=== PATIENT | female | born 1975 ===

== ENCOUNTER 2017-12-29 12:00 | Inpatient (IN) | payer SELFPAY ==
[2017-12-23 12:20] VITALS: BMI 31.1
[2017-12-29] MEDS ORDERED: cefOXitin IV 2 gm in Dextrose 0 GM/0 ML BAG IVPB ONE (13:54)
[2017-12-29] MEDS ORDERED: Vasopressin 20 Units/ml Inj ONE (13:55)
[2017-12-29] MEDS ORDERED: Midazolam 2 MG/2 ML VIAL ONE (14:00)
[2017-12-29] MEDS ORDERED: Propofol 10 mg/ml Inj (20 ML) ONE (14:00)
[2017-12-29] MEDS ORDERED: Gentamicin 80 mg in 0.9% NS 80 MG/100 ML BAG IVPB ONE (14:09)
[2017-12-29] MEDS ORDERED: Clindamycin 600mg/50ml NS 600 MG/50 ML BAG IVPB ONE (14:09)
[2017-12-29] MEDS ORDERED: ePHEDrine 50 mg/ml Inj ONE (15:12)
[2017-12-29] MEDS ORDERED: Collagen Hemostat Powder ONE (15:27)
[2017-12-29] MEDS ORDERED: Dexamethasone 4 mg/1 ml IVP PRN (16:07)
[2017-12-29] MEDS ORDERED: HYDROmorphone 0.5 mg/0.5 ml ISec IVP PRN (16:07)
[2017-12-29] MEDS ORDERED: Bacitracin Ointment 30 GM TUBE ONE (16:12)
--- NOTE | 2017-12-29 16:22 | PCM.SURG1 ---
Surgeon's Initial Post Op Note - Surgeon's Notes Surgeon: Dr. Bueno Family [employer] Social Work Professor: Dr. Lemus Type of Anesthesia: General Endo Anesthesia Administered By: Dr. Holland Pre-Operative Diagnosis: 42 yo with Menorrhagia, Chronic pelvic pain , fibroid uterus Operative Findings: AV uterus with large fibroid approx 9 cm Post-Operative Diagnosis: same as above Operation Performed: Exp. Laparotomy, Lysis of adhesions, Myomectomy Specimen/Specimens Removed: Fibroid Estimated Blood Loss: EBL {In ML}: 100 Blood Products Given: N/A Drains Used: No Drains Post-Op Condition: Good Date of Surgery/Procedure: 12/29/17 Time of Surgery/Procedure: 16:
[2017-12-29] MEDS: HYDROmorphone 0.5 mg/0.5 ml ISec IVP PRN ×6 (16:49→22:24)
[2017-12-29 17:08] LABS: HEMOGLOBIN 9.8 g/dL (11.0-16.0); MEAN CELL VOLUME 69.3 fL (81.0-99.0); MEAN CORPUSCULAR HEMOGLOBIN 21.8 pg (27.0-31.0); MEAN CORPUSCULAR HGB CONC 31.5 g/dL (33.0-37.0); MEAN PLATELET VOLUME 7.7 fL (7.2-11.7); RBC 4.48 Mil/uL (3.80-5.20); RED CELL DISTRIBUTION WIDTH 16.7 % (11.5-14.5); WHITE BLOOD COUNT 17.9 K/uL (4.8-10.8)
[2017-12-29] MEDS ORDERED: Lactated Ringer's 1,000 ML IV ONE (18:30)
[2017-12-29 19:24] VITALS: RESP 18
[2017-12-30] MEDS: HYDROmorphone 0.5 mg/0.5 ml ISec IVP PRN (04:47)
--- NOTE | 2017-12-30 07:08 | OP ---
PROCEDURE DATE: 12/29/2017 PREOPERATIVE DIAGNOSIS: The patient is a 42-year-old female with large fibroid uterus and known to have anemia. POSTOPERATIVE DIAGNOSIS: Large fibroid uterus, multiple adhesions, and known to have anemia. PROCEDURE: Laparotomy, myomectomy. SURGEON: Belinda Bueno MD. TYPE OF ANESTHESIA: General. ANESTHESIOLOGIST: Dr. Holland. ESTIMATED BLOOD LOSS: Less than 100 mL. URINE OUTPUT: 150 mL of clear urine at the end of the procedure. FLUIDS: The patient received 1500 mL during the procedure. SPECIMEN: Large leiomyoma, approximately 10 cm. DRAINS: Dunham catheter to gravity. FINDING: On bimanual examination, the uterus was grossly enlarged, approximately 20 weeks gestation. Surgically, the patient had a large leiomyoma posteriorly which was approximately 9 cm. She also had multiple adhesions, lysis of adhesions was noted. Both ovaries and tubes appear to be within normal limits. DESCRIPTION OF PROCEDURE: Prior to going to the operating room, the patient was informed of the risk factor, benefits and alternative of the procedure. Risk factors included infection, bleeding, damage to surrounding organs and tissue, complications from anesthesia, and possible . The patient was informed that she was undergoing a myomectomy that the leiomyomas can recur. She was well aware. The patient did not desire to remove her uterus. All questions were answered and an informed consent was obtained. Once that was performed, the patient was then taken to the operating room, and she was prepped and draped in normal sterile fashion in a dorsal supine position. After general anesthesia was found to be adequate, a Pfannenstiel incision was made with the scalpel. This was then carried to the underlying layers of the fascia with a second knife. The fascia was incised in the midline with the second knife and the fascial incision was then extended laterally in both directions with the Murry scissors. The superior aspect of the fascial incision was then grasped with a Vickie clamp, tented up, and dissected off the underlying rectus muscle. It was then dissected in the middle with the Murry scissors. The inferior aspect of the incision was addressed in a similar manner. The rectus muscles were then in the midline. The peritoneum was identified with hemostatic clamps, tented up, and entered sharply with Metzenbaum scissors. The peritoneal incision was extended superiorly and inferiorly with Metzenbaum scissors and then extended. Next the uterus was grasped bluntly and removed from the abdomen. The uterus was approximately 20 weeks gestation. She had a large renal myoma which then injected with Vasopressin 20 units mixed in 50 mL of normal saline along the serosal surface and careful to avoid any blood vessels. Approximately 50 mL was injected. Next a pointer was used from the cautery cutting to cut the linear incision along the top of the leiomyoma until the uterine fibroids were seen. The edges of the myometrium was grasped with Allis clamps, tented up and hemostasis was used bluntly to dissect along the fibroid followed by blunt dissection with the finger. The fibroid was easily and bluntly dissected out. It was also grasped with a towel clamp to prevent use of traction. The large fibroid was transected. It was noted that we did enter the endometrial cavity with a very large leiomyoma, so the patient is aware of regardless that she cannot have a normal vaginal delivery, she would only be able to have a . Once the leiomyoma was removed, next the uterine incision was then closed with three layers of 0 Vicryl and the fourth layer was basically closed with 2-0 Chromic. Next in that particularly instance, excellent hemostasis was noted. The uterus was returned back to the cavity. The laps were then removed from the abdominal cavity and everything appeared hemostasis. Lysis of adhesion was performed to have proper closure. Separate film was utilized as hemostasis. All instruments removed from the abdomen. The rectus muscle was reapproximated with single interrupted suture. The peritoneum was reapproximated with 2-0 chromic. Then the fascia was closed with 0 Vicryl in a running fashion. The adipose tissue was reapproximated with 2-0 plain and the skin was closed with 3-0 Monocryl. The incision was then dressed with Steri-Strips, and in that particular instance after the patient was cleaned, instruments and lap count were correct x2. The patient was then taken to the recovery room in stable condition. Belinda Bueno MD
[2017-12-30] MEDS: Oxycodone/Acetaminophen 5/325 mg Tab PO PRN ×3 (08:36→21:20)
[2017-12-30] MEDS: Simethicone 80 mg Chewtab PO SCH ×4 (09:49→21:19)
[2017-12-30] MEDS ORDERED: Gentamicin 80 mg in 0.9% NS 80 MG/100 ML BAG IVPB ONE (11:00)
--- NOTE | 2017-12-30 12:48 | CP.PCM.PN ---
Subjective - Date & Time of Evaluation Date of Evaluation: 12/30/17 Time of Evaluation: 12:45 - Subjective Subjective: Patient alert and oriented x3 Objective - Vital Signs/Intake and Output Vital Signs (last 24 hours): Temp Pulse Resp BP Pulse Ox 99.0 F 72 18 107/69 98 12/30/17 08:00 12/30/17 08:00 12/30/17 08:00 12/30/17 08:00 12/30/17 08:00 Intake and Output: 12/30/17 12/30/17 06:59 18:59 Intake Total 1500 Balance 1500 - Medications Medications: Current Medications Ascorbic Acid (Vitamin C 500 Mg Tab) 500 mg PO DAILY [facility] Last Admin: 12/30/17 09:48 Dose: 500 mg Docusate Sodium (Colace) 100 mg PO BID [facility] Ferrous Sulfate (Feosol) 325 mg PO TID [facility] Last Admin: 12/30/17 09:48 Dose: 325 mg Ibuprofen (Motrin Tab) 600 mg PO TID [facility] Last Admin: 12/30/17 09:49 Dose: 600 mg Ondansetron HCl (Zofran Inj) 4 mg IVP ONCE PRN PRN Reason: Nausea/Vomiting Oxycodone/Acetaminophen (Percocet 5/325 Mg Tab) 1 tab PO Q6H PRN PRN Reason: Pain, moderate (4-7) Stop: 01/01/18 22:02 Oxycodone/Acetaminophen (Percocet 5/325 Mg Tab) 2 tab PO Q6H PRN PRN Reason: Pain, severe (8-10) Stop: 01/02/18 07:01 Last Admin: 12/30/17 08:36 Dose: 2 tab Simethicone (Mylicon Chew Tab) 80 mg PO QID [facility] Last Admin: 12/30/17 09:49 Dose: 80 mg - Labs Labs: 12/29/17 16:58 - Constitutional Appears: Well - Head Exam Head Exam: ATRAUMATIC - Eye Exam Eye Exam: EOMI, Normal appearance, PERRL Pupil Exam: NORMAL ACCOMODATION, PERRL - ENT Exam ENT Exam: Normal Exam - Neck Exam Neck Exam: Full ROM - Respiratory Exam Respiratory Exam: Clear to Ausculation Bilateral - Cardiovascular Exam Cardiovascular Exam: REGULAR RHYTHM - GI/Abdominal Exam GI & Abdominal Exam: Normal Bowel Sounds - Rectal Exam Rectal Exam: NORMAL INSPECTION - Exam External exam: NORMAL EXTERNAL EXAM Speculum exam: NORMAL SPECULUM EXAM Bimanual exam: NORMAL BIMANUAL EXAM - Extremities Exam Extremities Exam: Full ROM, Normal Capillary Refill, Normal Inspection. absent: Joint Swelling, Pedal Edema - Back Exam Back Exam: NORMAL INSPECTION - Neurological Exam Neurological Exam: Alert, Awake, CN II-XII Intact, Normal Gait, Oriented x3 - Psychiatric Exam Psychiatric exam: Normal Affect, Normal Mood - Skin Skin Exam: Normal Color Assessment and Plan - Assessment and Plan (Free Text) Assessment: s/p Laparotomy Myomectomy, MILLA Plan: Stable Possible D/C at am
[2017-12-31 00:37] LABS: BASO % 0.1 % (0.0-2.0); HEMOGLOBIN 8.9 g/dL (11.0-16.0); LYMPH # 2.4 K/uL (1.0-4.3); LYMPH % 18.4 % (20.0-40.0); MEAN CELL VOLUME 69.6 fL (81.0-99.0); MEAN CORPUSCULAR HEMOGLOBIN 22.2 pg (27.0-31.0); MEAN CORPUSCULAR HGB CONC 31.9 g/dL (33.0-37.0); MEAN PLATELET VOLUME 8.3 fL (7.2-11.7); MONO # 0.9 K/uL (0.0-0.8); MONO % 6.8 % (0.0-10.0); NEUT # 9.8 K/uL (1.8-7.0); NEUT % 74.7 % (50.0-75.0); RED CELL DISTRIBUTION WIDTH 16.9 % (11.5-14.5); WHITE BLOOD COUNT 13.2 K/uL (4.8-10.8)
[2017-12-31] MEDS: Simethicone 80 mg Chewtab PO SCH ×3 (10:17→18:14)
[2017-12-31] MEDS: Oxycodone/Acetaminophen 5/325 mg Tab PO PRN ×2 (10:31→18:08)
[2017-12-31 11:37] LABS: BASO % 0.3 % (0.0-2.0); EOS % 0.1 % (0.0-4.0); HEMOGLOBIN 9.5 g/dL (11.0-16.0); LYMPH # 3.5 K/uL (1.0-4.3); LYMPH % 28.2 % (20.0-40.0); MEAN CELL VOLUME 69.1 fL (81.0-99.0); MEAN CORPUSCULAR HEMOGLOBIN 22.2 pg (27.0-31.0); MEAN CORPUSCULAR HGB CONC 32.1 g/dL (33.0-37.0); MEAN PLATELET VOLUME 8.3 fL (7.2-11.7); MONO # 0.6 K/uL (0.0-0.8); MONO % 4.8 % (0.0-10.0); NEUT # 8.2 K/uL (1.8-7.0); NEUT % 66.6 % (50.0-75.0); RBC 4.27 Mil/uL (3.80-5.20); RED CELL DISTRIBUTION WIDTH 17.2 % (11.5-14.5); WHITE BLOOD COUNT 12.3 K/uL (4.8-10.8)
[2017-12-31 16:43] VITALS: BP 91/58; PULSE 72; TEMP 98.2; O2SAT 18
[2017-12-31] MEDS ORDERED: Influenza Vaccine 60 MCG/0.5 ML SYR (3 yr & up) IM ONE (17:24)
== END 2017-12-31 19:15 | disposition home or self-care (01) | DRG 519 ==
LOC: C.9S 12:21 → C.4M 19:15
PROVIDERS: ADMIT Obstetrics & Gynecology; ATTEND Obstetrics & Gynecology
PROC: 0UB90ZZ Excision of Uterus, Open Approach (ICD-10-PCS; principal; 2017-12-29 13:00)
PROC: 0JNC0ZZ Release Pelvic Region Subcutaneous Tissue and Fascia, Open Approach (ICD-10-PCS; 2017-12-29 13:00)
DX: D25.9 Leiomyoma of uterus, unspecified (principal); D64.9 Anemia, unspecified; N73.6 Female pelvic peritoneal adhesions (postinfective); R10.2 Pelvic and perineal pain; N92.0 Excessive and frequent menstruation with regular cycle